=== PATIENT | male | born 1970 | race Caucasian/White ===

== ENCOUNTER 2016-12-02 18:14 | Inpatient (IN) | payer MEDICARE, OTHER ==
--- NOTE | ~2016-12-02 | CN ---
Consultation Report [facility] [address] [place]. [address] NAME: VALERIA TOVAR : 70 STATUS : ADM IN PAT#: [id number] AGE: 46 ADM/REG DATE : 12/02/16 MR#: [id number] REPORT SERV DATE: 12/03/16 DICTATED BY: JESSEE ARCHULETA DATE: 12/03/16 REPORT STATUS : Draft TRANSCRIBED BY: MODL DATE: 12/03/16 CARDIAC ELECTROPHYSIOLOGY CONSULTATION DATE OF CONSULTATION: 12/03/2016 SIXTH GRADE TEACHER: Bravo Santos M.D. BOTTOMING ROOM SUPERVISOR: Dr. Gregory Markham and Dr. Marquez Hernandez. INDICATIONS: Recurrent VT. HISTORY OF PRESENT ILLNESS: Valeria Tovar is a 46-year-old man with a complex past medical history with nonischemic cardiomyopathy, history of acute myocarditis. His ejection fraction has subsequently improved. He has had recurrent episodes of ventricular tachycardia in 2010 and 2014, and reports a previous VT storm, having received 50 shocks in the past. He has an existing dual-chamber defibrillator. He has had previous ablation for atrial fibrillation performed at [facility]. His ICD is followed by Dr. Marquez Hernandez at [facility]. The patient presented to the emergency room yesterday, he had been somewhat hot, but not excessively dehydrated by his report. After cleaning up, he received numerous ICD discharges, who presents to the emergency room. I have reviewed the interrogation and the patient has received 57 ICD treatments since 10/26/2016 with a total of 41 shocks. Of interest, he was apparently contacted by [facility] last week and advised increase his sotalol from 40 twice daily to 80 twice daily anticipation is related to VT event that occurred in October. The patient was seen by EMS initially which gave him lidocaine and which terminated the ventricular tachycardia. He reports some soreness in his chest, but no juan angina. He had marked lightheadedness with these spells. He did not drive a car. No active complaints of shortness of breath at the present time. On interrogation the patient's defibrillator, all treatments are appropriate. PAST MEDICAL HISTORY: Nonischemic cardiomyopathy, history of myocarditis, chronic systolic heart failure, VT, AFib, chronic anticoagulation, hypertension, history of DVT, history of tobacco use, chronic back pain, and a dual-chamber defibrillator. Ejection fraction last measured at 48% by echo, 02/2016. MEDICATIONS: Home medications with [facility] home medicine form and reviewed. Of note, sotalol 80 mg twice daily and Eliquis 5 mg b.i.d. ALLERGIES: NONE KNOWN. OTHERWISE, MEDICINES PER THE PATIENT'S HOME MED SHEET. SOCIAL HISTORY: No present smoking. FAMILY HISTORY: Known for hypertension and coronary artery disease. Consultation Report [address]. [address] NAME: VALERIA TOVAR : 70 STATUS : ADM IN PAT#: [id number] AGE: 46 ADM/REG DATE : 12/02/16 MR#: [id number] REPORT SERV DATE: 12/03/16 DICTATED BY: JESSEE ARCHULETA DATE: 12/03/16 REPORT STATUS : Draft TRANSCRIBED BY: CECI DATE: 12/03/16 REVIEW OF SYSTEMS: As per the HPI. Otherwise, all review of systems negative. PHYSICAL EXAMINATION: VITAL SIGNS: Blood pressure 106/62, pulse is 60, respiratory rate is 18. GENERAL: Appears stated age, no distress. EYES: Sclerae anicteric, no arcus senilis. MOUTH: Oral mucosa moist, lips acyanotic. NECK: Jugular venous pressure normal, no carotid bruits. LUNGS: Clear to auscultation bilaterally, normal inspiratory effort. CARDIAC: Regular rate and rhythm, no murmurs, gallops or rubs. ABDOMEN: Soft, nondistended, nontender. EXTREMITIES: No edema. SKIN: Warm and dry. NEURO/PSYCH: Alert and oriented, nonfocal, mood appropriate. DATA: Sodium 138, potassium 4.8, creatinine 1.19. Troponin 0.12. Hemoglobin 13.5. ECG is atrial sensed ventricular paced rhythm. IMPRESSIONS: 1. Recurrent ventricular tachycardia storm. 2. Nonischemic cardiomyopathy. 3. Normal function existing ICD. Better life reported at less than one month. I have reinterrogated given multiple shocks. 4. Atrial fibrillation with previous ablation. RECOMMENDATIONS: Increase sotalol to 160 twice daily, add mexiletine 150 t.i.d. then wean lidocaine, increase lower rate limit of ICD to 80 if medicine changes fell consider amiodarone and consider prompt followup with [facility]. Discussed with the patient. All questions answered. TOVA/CECI Jessee Archuleta M.D. / [id number] CC: Nile De La Garza M.D.
--- NOTE | ~2016-12-02 | HP ---
History And Physical [address] [place]. [address] NAME: VALERIA TOVAR : 70 STATUS : ADM IN [facility]#: [id number] AGE: 46 ADM/REG DATE : 12/02/16 MR#: [id number] REPORT SERV DATE: 12/03/16 DICTATED BY: VISH SANTOS DATE: 12/03/16 REPORT STATUS : Draft TRANSCRIBED BY: MODL DATE: 12/03/16 DATE OF ADMISSION: 12/02/2016 CHIEF COMPLAINT: Defibrillator discharge multiple times. HISTORY OF PRESENT ILLNESS: The patient is a 46-year-old male with a known history of left ventricular outflow tachycardia with recurrent ventricular tachycardia. The patient has a history of previous ablations in 2010 and in 2014 with subsequent implantable defibrillator placement. The patient has a dual-chamber Medtronic brand ICD. The patient also has a history of paroxysmal atrial fibrillation and flutter and is status post ablation 03/01/2016. The patient reports that 24 hours prior to admission, the patient was performing routine activities when he suddenly felt dizzy then felt a defibrillator discharge. He had complete resolution of his dizziness and felt fine, he worked vigorously during the day in the yard without symptoms. On the day of admission, the patient noticed a recurrent episode of dizziness, he had then had recurrent defibrillator discharge followed subsequently by multiple recurrent discharges. Interrogation of the device demonstrates recurrent ventricular tachycardia with 40 defibrillator discharges within 24 hour. The patient was seen in the emergency department, begun on intravenous lidocaine drip and has had no recurrence since that time. The patient denies any recent chest pain. Denies dyspnea on exertion. Denies lower extremity edema. He states that he has been compliant with medications. He has had no recent illness. Denies fevers, chills, bowel or bladder abnormalities. PAST MEDICAL HISTORY: 1. Left ventricular tachycardia, status post ablations in 2010 and 2014. a. Previous defibrillator implantation with dual-chamber Medtronic brand device 12/23/2014. 2. Paroxysmal atrial fibrillation/flutter, status post ablation on 03/01/2016. 3. Chronic anticoagulation due to paroxysmal atrial fibrillation on Eliquis. 4. Hyperlipidemia. 5. Hypertension. 6. Gastroesophageal reflux disease. 7. Chronic back pain. 8. History of nonischemic cardiomyopathy with a most recent echocardiogram, end of last year demonstrating ejection fraction of 48%. ALLERGIES: NO KNOWN DRUG ALLERGIES. HOME MEDICATIONS: Xanax one tablet p.o. t.i.d., apixaban 5 mg b.i.d., Abilify 15 mg at bedtime, Nexium 40 mg daily, Flonase p.r.n., Lasix 40 mg p.r.n. edema, metoprolol succinate 50 mg daily, oxycodone 15 mg t.i.d., sertraline 100 mg daily, sotalol 80 mg q.12, spironolactone 25 mg daily, testosterone cypionate 200 mg IM q.10 days, and Zanaflex 4 mg p.r.n. muscle spasms. History And Physical [address] [address] NAME: VALERIA TOVAR : 70 STATUS : ADM IN [facility]#: [id number] AGE: 46 ADM/REG DATE : 12/02/16 MR#: [id number] REPORT SERV DATE: 12/03/16 DICTATED BY: VISH SANTOS DATE: 12/03/16 REPORT STATUS : Draft TRANSCRIBED BY: CECI DATE: 12/03/16 FAMILY HISTORY: Noncontributory. SOCIAL HISTORY: The patient denies illicit drug use. REVIEW OF SYSTEMS: Negative for all organ systems except per the history of present illness. PHYSICAL EXAMINATION: VITAL SIGNS: Blood pressure ranging 106/62 to 142/94, pulse 62, respirations 12 and unlabored, saturating 99% on room air, weight 89 kg. GENERAL: Middle-aged male, somewhat anxious appearing, but in no acute distress. HEENT: Normal. NECK: Supple, no JVD or bruit, normal carotid upstroke bilaterally, no thyromegaly. LUNGS: Clear to auscultation and percussion. No wheezes, rales or rhonchi. No use of accessory muscles. CARDIOLOGY: Regular rhythm, normal S1, S2, no thrill, no murmur, rubs or gallops, normal PMI. ABDOMEN: Bowel sounds positive, soft, nontender, and nondistended. No masses or aortic bruits. No hepatosplenomegaly or hepatojugular reflux. EXTREMITIES: No edema. Normal pulses. No clubbing or cyanosis. SKIN: Warm and dry, no significant rash. NEUROLOGIC: Alert and oriented x 3. Appropriate mood. LABORATORY DATA: EKG: Sinus rhythm. First-degree AV block. Ventricularly paced rhythm. WBC 10.5, hemoglobin 13.5, hematocrit 38.5, platelets 343,000. Sodium 138, potassium 4.8, chloride 109, CO2 of 27, BUN 20, creatinine 1.19, glucose 91, troponin 0.12, magnesium 1.9. Chest x-ray: Unremarkable. IMPRESSION: Recurrent ventricular tachycardia, the patient with history of same and previous multiple ablation procedures. A consideration initiation of mexiletine versus transition from sotalol to amiodarone, somewhat hesitant to do so given the patient's young age, potential long-term side effects are same. We will formally consult electrophysiology, discuss the role of potential recurrent ablation, although unlikely given two previous ablations. AP/CECI Bravo Santos M.D. / [id number] CC: History And Physical [address] [address] NAME: VALERIA TOVAR : 70 STATUS : ADM IN [facility]#: [id number] AGE: 46 ADM/REG DATE : 12/02/16 MR#: [id number] REPORT SERV DATE: 12/03/16 DICTATED BY: VISH SANTOS DATE: 12/03/16 REPORT STATUS : Draft TRANSCRIBED BY: CECI DATE: 12/03/16 Nile De La Garza M.D.
[~2016-12-02 18:14] MED LIST: ABILIFY15 PO; ATV.5 PO; BETAPACE AF80 MG PO; CONSTULOSE PO; DEPO-TESTOS200 MG/ML IM; ELIQUIS 5 MG TAB5 MG PO; FISH OIL300 MG PO; FISH-EPA1000 MG PO; FLONASE NAS; KLOR-CON M2020 MEQ PO; L40 PO; LOP25 PO; LOP50 PO; LORT7 PO; MEXILETINE150 MG OR; NEXIUM40 PO; NORCO1 TA2 PO; NORCO1 TAB PO; NORV5 PO; OXYCOD PO; PRAVAC PO; PRILO PO; PRILOSEC40 MG PO; PRIN10 PO; PRIN20 PO; ROXICODONE15 MG PO; RYTHMOL225 MG PO; SORINE80 MG PO; SPIRO25 PO; TAMBOCOR PO; TAMBOCOR150 MG PO; TESTOST CYP100 MG/ML IM; TESTOST CYP200 MG/ML IM; TOPXL100 PO; TOPXL50 PO; TRICOR145 PO; V180SR PO; VERAPAMIL PO; XANAX1 MG PO; ZANAFLEX 4 MG TA4 MG PO; ZOL100 PO
[2016-12-02 18:16] LABS: BASOPHILS 0.2 %; BASOPHILS ABSOLUTE 0.02 10/3/uL (0.0-0.16); EOSINOPHILS 1.3 %; EOSINOPHILS ABSOLUTE 0.14 10/3/uL (0.0-0.53); ER CBC TAT 0 Hrs 07 Mins; HEMATOCRIT 38.5 % (40.0-51.0); HEMOGLOBIN 13.5 g/dL (13.6-17.8); IMMATURE GRANULOCYTES 0.2 %; IMMATURE GRANULOCYTES ABSOLUTE 0.02 10/3/uL (0.0-0.11); LYMPHOCYTES 21.7 %; LYMPHOCYTES ABSOLUTE 2.27 10/3/uL (0.67-4.30); MEAN CORPUS HGB CONC 35.1 g/dL (32.0-36.0); MEAN CORPUSCULAR HEMOGLOB 27.4 pg (26.0-34.0); MEAN PLATELET VOLUME 9.9 fL (9.2-13.0); MONOCYTES 8.3 %; MONOCYTES ABSOLUTE 0.87 10/3/uL (0.21-1.20); NEUTROPHILS 68.3 %; NEUTROPHILS ABSOLUTE 7.16 10/3/uL (2.02-8.40); RBC DISTRIBUTION WIDTH 14.5 % (12.0-16.0); RED CELL COUNT 4.93 10/6/uL (4.7-6.1); WHITE BLOOD CELLS 10.5 10/3/uL (4.5-10.5)
[2016-12-02 18:18] LABS: MANUAL DIFF NO %; MEAN CORPUSCULAR VOLUME 78.1 fL (80-100); PLATELET COUNT 343 10/3/uL (150-400)
[2016-12-02 18:24] LABS: INTERNATIONAL NORMAL RATI 1.2 UNITS (-); PARTIAL THROMBO TIME 32.7 SEC (22.5-37.2); PROTIME (NOT ORD) 15.1 SEC (12.0-14.5)
[2016-12-02 18:32] LABS: CALCIUM, SERUM 8.5 MG/DL (8.5-10.4); CHLORIDE, SERUM 109 MMOL/L (96-112); CO2 (CARBON DIOXIDE) 27 MMOL/L (24-34); CREATININE 1.19 MG/DL (0.70-1.30); GFR AFRICAN AMERICAN 84 ML/MIN (>=60); GFR NON AFRICAN AMERICAN 73 ML/MIN (>=60); GLUCOSE, SERUM 91 MG/DL (60-99); SODIUM, SERUM 138 MMOL/L (135-148)
[2016-12-02 18:36] LABS: BUN (BLOOD UREA NITROGEN) 20 MG/DL (6-23); POTASSIUM, SERUM 4.8 MMOL/L (3.5-5.3)
[2016-12-02 18:37] LABS: CHEST PAIN PROFILE TAT 0 Hrs 28 Mins; TROPONIN I 0.12 NG/ML (<0.05)
[2016-12-04 04:10] LABS: BUN (BLOOD UREA NITROGEN) 17 MG/DL (6-23); CALCIUM, SERUM 8.7 MG/DL (8.5-10.4); CHLORIDE, SERUM 107 MMOL/L (96-112); CO2 (CARBON DIOXIDE) 32 MMOL/L (24-34); CREATININE 0.94 MG/DL (0.70-1.30); GFR AFRICAN AMERICAN 112 ML/MIN (>=60); GFR NON AFRICAN AMERICAN 97 ML/MIN (>=60); GLUCOSE, SERUM 95 MG/DL (60-99); SODIUM, SERUM 141 MMOL/L (135-148)
[2016-12-04] MEDS ORDERED: MEXITIL 150 MG150 MG PO (08:34)
[2016-12-04] MEDS ORDERED: BETAPACE160 MG PO (08:38)
[2017-01-21] MEDS ORDERED: NEXIUM20 M1 PO (11:45)
[2017-01-21] MEDS ORDERED: ZESTRIL30 MG PO (11:45)
[2017-01-21] MEDS ORDERED: TOPXL100 PO (11:45)
[2017-01-21] MEDS ORDERED: PEP20 PO (11:45)
[2017-01-21] MEDS ORDERED: BETAPACE80 PO (11:46)
[2017-01-21] MEDS ORDERED: L20 PO (11:59)
[2017-01-21] MEDS ORDERED: KLOR-CON M1010 MEQ PO (11:59)
[2017-01-22] MEDS ORDERED: FLONASE (10:00)
[2017-01-22] MEDS ORDERED: PRILOSEC40 MG PO (10:00)
== END 2016-12-04 13:43 | disposition home or self-care (01) | DRG 309 ==
LOC: ER 18:14 → 7NO 20:23
PROVIDERS: Emergency Medicine; Internal Medicine Cardiovascular Disease
PROC: 4B02XTZ Measurement of Cardiac Defibrillator, External Approach (ICD-10-PCS; principal; 2016-12-03)
DX: I47.2 Ventricular tachycardia (principal); I42.9 Cardiomyopathy, unspecified; I24.8 Other forms of acute ischemic heart disease; I50.22 Chronic systolic (congestive) heart failure; I48.0 Paroxysmal atrial fibrillation; M54.6 Pain in thoracic spine; Z95.810 Presence of automatic (implantable) cardiac defibrillator; Z86.718 Personal history of other venous thrombosis and embolism; Z87.891 Personal history of nicotine dependence; Z79.02 Long term (current) use of antithrombotics/antiplatelets
CPT/HCPCS: 71010; 78452; 80048; 83735; 84484; 85025; 85610; 85730; 93005; 93017; 96365; 96366; 96375; 99291; A9270-GY; A9502; J0153; J1170

== ENCOUNTER 2016-12-19 06:46 | Inpatient (IN) | payer MEDICARE, OTHER ==
--- NOTE | ~2016-12-19 | HP ---
History And Physical [address] [place]. [address] NAME: VALERIA TOVAR : 70 STATUS : ADM IN [facility]#: [id number] AGE: 46 ADM/REG DATE : 12/19/16 MR#: [id number] REPORT SERV DATE: 12/19/16 DICTATED BY: ALEXIS MONIQUE DATE: 12/19/16 REPORT STATUS : Draft TRANSCRIBED BY: MODL DATE: 12/19/16 DATE OF ADMISSION: 12/19/2016 [facility] PHYSICIAN: Bravo Santos M.D. MAILROOM ASSISTANT: Gregory Markham M.D. CHIEF COMPLAINT: Dizziness and defibrillator firing. HISTORY OF PRESENT ILLNESS: Mr. Tovar is a 46-year-old man with a history of nonischemic cardiomyopathy and recurrent ventricular tachycardia as well as atrial fibrillation. He was hospitalized just a few weeks ago for VT storm. His defibrillator had fired approximately 40 times. He had an increased dose of sotalol and addition of mexiletine to his medical regimen. He was discharged home. He was doing fairly well, saw Dr. Markham in the office last week with a discussion regarding upgrade of his defibrillator to biventricular device with mild decreased LV function. He reportedly had some dizziness and his defibrillator began firing yesterday evening. He reported 10 to 12 shocks. He came to the emergency room. He has had no firing since he has been in the emergency room. Interrogation of the defibrillator does show recurrent episodes of ventricular tachycardia with numerous pace- terminated episodes and 12 shocks. He reports no exertional symptoms, chest pain, tightness prior to these episodes, although does have some mild chest tightness now as well as back pain that he relates to his defibrillator firing. He had no exertional shortness of breath or lower extremity edema. He has had some mild palpitations. No fevers or chills. No nausea or vomiting. Currently, he is requesting his anxiety medicine and pain medicine. REVIEW OF SYSTEMS: As per the history of present illness. All other systems are negative. PAST MEDICAL HISTORY: 1. Ventricular tachycardia, status post LVOT tachycardia with ablation in 2010 and 2014. 2. History of ICD placement. 3. Paroxysmal atrial fibrillation with ablation in February of 2016. 4. Chronic anticoagulation with Eliquis. 5. Hypertension. 6. Hypercholesterolemia. 7. Reflux. 8. Nonischemic cardiomyopathy with a history of myocarditis with recent LVEF of 40%, which is a small decline. FAMILY HISTORY: Noncontributory. SOCIAL HISTORY: The patient is . Reports no tobacco. ALLERGIES: NO KNOWN DRUG ALLERGIES. HOME MEDICATIONS: Xanax one daily, Eliquis 5 p.o. b.i.d., Abilify 15 q.a.m., Nexium 40 History And Physical [address] [address] NAME: VALERIA TOVAR : 70 STATUS : ADM IN PAT#: [id number] AGE: 46 ADM/REG DATE : 12/19/16 MR#: [id number] REPORT SERV DATE: 12/19/16 DICTATED BY: ALEXIS MONIQUE DATE: 12/19/16 REPORT STATUS : Draft TRANSCRIBED BY: CECI DATE: 12/19/16 daily, Flonase, Lasix 40 p.r.n., Zestril 30 q.a.m., Toprol-XL 100 daily, mexiletine 150 p.o. t.i.d., oxycodone 10 q.6 p.r.n., Zoloft, Betapace 160 p.o. b.i.d., Aldactone 25 daily, and testosterone. PHYSICAL EXAMINATION: VITAL SIGNS: Heart rate 72, blood pressure 129/92. GENERAL: The patient is a pleasant white male, in no apparent distress. HEENT: Conjunctivae are anicteric, no xanthelasma, lips without cyanosis. NECK: Supple, normal JVP, carotids +2 without bruit. LUNGS: Clear to auscultation bilaterally, no wheezes, rales or rhonchi. CARDIOVASCULAR: Irregularly irregular. Normal S1, S2. Distant heart sounds. ABDOMEN: Soft, nontender, nondistended, with normal bowel sounds. No hepatomegaly. EXTREMITIES: No clubbing, cyanosis or edema. NEURO/PSYCH: Alert and oriented to person, place and time. No obvious neurologic deficits. Mood and affect normal. DATA: Labs significant for creatinine of 1.25, hematocrit of 40.6, troponin 0.02. IMPRESSION: 1. Recurrent ventricular tachycardia with VT storm. 2. Nonischemic cardiomyopathy, history of myocarditis. 3. History of left ventricular outflow tract ventricular tachycardia, status post ablation x2. 4. Paroxysmal atrial fibrillation. 5. History of ICD placement. 6. Anxiety and chronic pain. 7. Hypertension, hypercholesterolemia, and reflux. RECOMMENDATIONS: Mr. Tovar has had recurrent ventricular tachycardia. He has a history of an LVOT tachycardia, status post ablation. He has now recurrent episodes on both mexiletine and sotalol. I wonder if this may be an indication for consideration to remap him and ablation. I am going to hold his Eliquis short-term and try to get in touch with Dr. Markham, his primary air breaker operator, to determine the course of treatment. At this time, he is hemodynamically stable. We will continue his other medicines, otherwise. WO/MODL Alexis Monique M.D., Ph.D, F.A.C.C. / [id number] CC: MD Brendan Harris M.D.
--- NOTE | ~2016-12-19 | DS ---
Discharge Summary [facility] [address] [place]. [address] NAME: VALERIA TOVAR : 70 STATUS : DIS IN PAT#: [id number] AGE: 46 ADM/REG DATE : 12/19/16 MR#: [id number] REPORT SERV DATE: 01/05/17 DICTATED BY: SKIP MARKHAM DATE: 01/04/17 REPORT STATUS : Draft TRANSCRIBED BY: CECI DATE: 01/04/17 Data Collection from hospitalization DISCHARGE DIAGNOSES: 1. Ventricular tachycardia. 2. Paroxysmal atrial fibrillation. 3. Nonischemic cardiomyopathy. 4. Hypertension. 5. Chronic anticoagulation with Eliquis. 6. Hypercholesterolemia. 7. Reflux. 8. History of implantable cardioverter defibrillator placement. CONSULTATIONS: None. PROCEDURES PERFORMED: 1. Cardiac catheterization on 12/20/2016. 2. Ablation on 12/25/2016. MEDICATIONS: Xanax 1 mg three times a day, Eliquis 5 mg twice a day, Abilify 15 mg every morning, Nexium 40 mg every morning, Flonase two sprays nasally every morning and two sprays nasally daily as needed, Lasix 40 mg daily as needed, Zestril 30 mg every morning, Toprol-XL 100 mg every morning, Mexitil 150 mg three times a day, Roxicodone 10 mg every six hours as needed, Zoloft 100 mg every morning, and Aldactone 25 mg every morning. He was instructed not to continue sotalol or testosterone. CONDITION AT DISCHARGE: Stable. DISPOSITION: The patient was discharged home on a low-sodium, low-cholesterol, cardiac diet with activities as instructed. He would follow up with me on 01/21/2017. He would follow up with Dr. Bravo Santos on 02/28/2017. He would follow up for ICD check at [facility] on 02/13/2017. He would follow up with his primary care provider as instructed. HOSPITAL COURSE: This is a 46-year-old man who has a history of nonischemic cardiomyopathy and recurrent ventricular tachycardia as well as atrial fibrillation. He had been hospitalized a few weeks prior to this admission for a ventricular tachycardia storm. His defibrillator had fired approximately 40 times. He had an increased dose of sotalol and the addition of mexiletine to his medical regimen. He had been discharged home. He was doing fairly well. I saw him in the office the week prior to this admission. He discussed upgrade of his defibrillator to a biventricular device with mild decreased LV function. He reportedly had some dizziness and his defibrillator began firing on the evening prior to this admission. He reported 10 to 12 shocks. He came to the emergency room. He has had no firing since he has been in the emergency room. Interrogation of the defibrillator did show recurrent episodes of ventricular tachycardia with numerous pace terminated episodes and 12 shocks. He reported no exertional symptoms, chest pain, or tightness prior to these episodes, although he did have some mild chest tightness as well as back pain that he related to his defibrillator firing. He had no exertional shortness of breath or lower extremity edema. He did have some mild palpitations. He was currently requesting his Discharge Summary [address] [place]. [address] NAME: VALERIA TOVAR : 70 STATUS : DIS IN PAT#: [id number] AGE: 46 ADM/REG DATE : 12/19/16 MR#: [id number] REPORT SERV DATE: 01/05/17 DICTATED BY: SKIP MARKHAM DATE: 01/04/17 REPORT STATUS : Draft TRANSCRIBED BY: CECI DATE: 01/04/17 anxiety medication and pain medication. He was admitted to the hospital at this time for further evaluation and treatment. Upon admission, his creatinine was 1.25. Troponin was 0.02. The patient has had recurrent episodes on both mexiletine and sotalol. We wondered if this may be an indication for consideration to remap him and ablation. We would hold his Eliquis short-term. At this time, he was hemodynamically stable. The following day, his lungs were clear. Sotalol and mexiletine were continued. His Medtronic device was checked. It was felt that the patient would need to undergo a cardiac catheterization. He was taken to the cardiac cathead worker by Dr. Rivera Raymundo where he underwent the above-mentioned procedure. He tolerated this well, and there were no complications. It was felt that he would need to undergo an ablation procedure. The following day, he did complain of anxiety related to his device firing. He was requesting that his Abilify be increased as well as his pain medications. He was asking to walk in the halls. He had no chest pain or shortness of breath. IV lidocaine was continued. Eliquis was restarted. [place] was discontinued. He was placed on oxycodone. On 12/22/2016, he had no dyspnea or chest pain. He has had no ICD discharges. Telemetry revealed ventricular paced rhythm. Eliquis was stopped. Sotalol was discontinued. Lidocaine drip was started. The next day, he did have some lidocaine toxicity symptoms. Lidocaine drip was stopped. It would be restarted later that day. Plans were being made to proceed with ablation. On 12/25/2016, he underwent successful ablation of idiopathic ventricular tachycardia. He tolerated this well, and there were no complications. Discharge planning was performed. On 12/26/2016, he had no chest pain, palpitations, or shortness of breath. He was alert and cooperative. Mexiletine was continued as well as metoprolol and Eliquis. Sotalol remained and discontinued. Discharge instructions were given. Due to his improved and stable condition, he was discharged home with the above- stated instructions. Information collected by: Marisabel Christine I submit the above information as my discharge summary. TG/MODL Skip Markham M.D. / [id number] CC: MD Brendan Harris M.D.
[2016-12-19 05:24] LABS: BASOPHILS 0.6 %; BASOPHILS ABSOLUTE 0.05 10/3/uL (0.0-0.16); EOSINOPHILS 2.6 %; EOSINOPHILS ABSOLUTE 0.23 10/3/uL (0.0-0.53); HEMATOCRIT 41.6 % (40.0-51.0); HEMOGLOBIN 14.1 g/dL (13.6-17.8); IMMATURE GRANULOCYTES 0.1 %; IMMATURE GRANULOCYTES ABSOLUTE 0.01 10/3/uL (0.0-0.11); LYMPHOCYTES 26.8 %; LYMPHOCYTES ABSOLUTE 2.39 10/3/uL (0.67-4.30); MEAN CORPUS HGB CONC 33.9 g/dL (32.0-36.0); MEAN CORPUSCULAR HEMOGLOB 27.2 pg (26.0-34.0); MEAN CORPUSCULAR VOLUME 80.2 fL (80-100); MEAN PLATELET VOLUME 9.8 fL (9.2-13.0); MONOCYTES 6.6 %; MONOCYTES ABSOLUTE 0.59 10/3/uL (0.21-1.20); NEUTROPHILS 63.3 %; NEUTROPHILS ABSOLUTE 5.66 10/3/uL (2.02-8.40); PLATELET COUNT 326 10/3/uL (150-400); RBC DISTRIBUTION WIDTH 14.3 % (12.0-16.0); RED CELL COUNT 5.19 10/6/uL (4.7-6.1); WHITE BLOOD CELLS 8.9 10/3/uL (4.5-10.5)
[2016-12-19 05:26] LABS: ER CBC TAT 0 Hrs 07 MinsNP; MANUAL DIFF NO %
[2016-12-19 05:30] LABS: INTERNATIONAL NORMAL RATI 1.1 UNITS (-); PARTIAL THROMBO TIME 32.7 SEC (22.5-37.2); PROTIME (NOT ORD) 13.7 SEC (12.0-14.5)
[2016-12-19 05:41] LABS: BUN (BLOOD UREA NITROGEN) 18 MG/DL (6-23); CALCIUM, SERUM 8.5 MG/DL (8.5-10.4); CHEST PAIN PROFILE TAT 0 Hrs 24 Mins; CHLORIDE, SERUM 107 MMOL/L (96-112); CO2 (CARBON DIOXIDE) 28 MMOL/L (24-34); CREATININE 1.25 MG/DL (0.70-1.30); GFR AFRICAN AMERICAN 80 ML/MIN (>=60); GFR NON AFRICAN AMERICAN 69 ML/MIN (>=60); GLUCOSE, SERUM 113 MG/DL (60-99); SODIUM, SERUM 139 MMOL/L (135-148); TROPONIN I <0.02 NG/ML (<0.05)
[~2016-12-19 06:46] MED LIST changes: +BETAPACE160 MG PO; +MEXITIL 150 MG150 MG PO
[2016-12-19] MEDS ORDERED: ELIQUIS 5 MG TAB5 MG PO (07:18)
[2016-12-19] MEDS ORDERED: TOPXL100 PO (07:18)
[2016-12-19] MEDS ORDERED: FLONASE NAS ×2 (07:19)
[2016-12-19] MEDS ORDERED: BETAPACE160 MG PO (07:20)
[2016-12-19] MEDS ORDERED: MEXITIL 150 MG150 MG PO (07:20)
[2016-12-19] MEDS ORDERED: ABILIFY15 PO (07:20)
[2016-12-19] MEDS ORDERED: L40 PO (07:21)
[2016-12-19] MEDS ORDERED: SPIRO25 PO (07:22)
[2016-12-19] MEDS ORDERED: ZESTRIL30 MG PO (07:22)
[2016-12-19] MEDS ORDERED: NEXIUM40 PO (07:22)
[2016-12-19] MEDS ORDERED: OXYCOD PO (07:22)
[2016-12-19] MEDS ORDERED: XANAX1 MG PO (07:23)
[2016-12-19] MEDS ORDERED: ZOL100 PO (07:23)
[2016-12-19] MEDS ORDERED: TESTOST CYP100 MG/ML IM (07:25)
[2016-12-20 05:58] LABS: BASOPHILS 0.7 %; BASOPHILS ABSOLUTE 0.05 10/3/uL (0.0-0.16); EOSINOPHILS 2.9 %; EOSINOPHILS ABSOLUTE 0.22 10/3/uL (0.0-0.53); HEMATOCRIT 42.8 % (40.0-51.0); HEMOGLOBIN 14.1 g/dL (13.6-17.8); IMMATURE GRANULOCYTES 0.1 %; IMMATURE GRANULOCYTES ABSOLUTE 0.01 10/3/uL (0.0-0.11); LYMPHOCYTES 32.6 %; LYMPHOCYTES ABSOLUTE 2.51 10/3/uL (0.67-4.30); MEAN CORPUS HGB CONC 32.9 g/dL (32.0-36.0); MEAN CORPUSCULAR HEMOGLOB 27.2 pg (26.0-34.0); MEAN CORPUSCULAR VOLUME 82.5 fL (80-100); MEAN PLATELET VOLUME 9.4 fL (9.2-13.0); MONOCYTES 7.4 %; MONOCYTES ABSOLUTE 0.57 10/3/uL (0.21-1.20); NEUTROPHILS 56.3 %; NEUTROPHILS ABSOLUTE 4.33 10/3/uL (2.02-8.40); PLATELET COUNT 296 10/3/uL (150-400); RBC DISTRIBUTION WIDTH 14.5 % (12.0-16.0); RED CELL COUNT 5.19 10/6/uL (4.7-6.1); WHITE BLOOD CELLS 7.7 10/3/uL (4.5-10.5)
[2016-12-20 05:59] LABS: MANUAL DIFF NO %
[2016-12-20 06:01] LABS: INTERNATIONAL NORMAL RATI 1.1 UNITS (-); PROTIME (NOT ORD) 13.7 SEC (12.0-14.5)
[2016-12-20 06:06] LABS: CALCIUM, SERUM 8.8 MG/DL (8.5-10.4); CHLORIDE, SERUM 103 MMOL/L (96-112); CO2 (CARBON DIOXIDE) 29 MMOL/L (24-34); CREATININE 1.14 MG/DL (0.70-1.30); GFR AFRICAN AMERICAN 89 ML/MIN (>=60); GFR NON AFRICAN AMERICAN 77 ML/MIN (>=60); GLUCOSE, SERUM 105 MG/DL (60-99); POTASSIUM, SERUM 4.1 MMOL/L (3.5-5.3); SODIUM, SERUM 138 MMOL/L (135-148); TRIGLYCERIDE 239 MG/DL (< 150)
[2016-12-20 06:17] LABS: ALBUMIN 3.5 G/DL (3.5-5.0); BUN (BLOOD UREA NITROGEN) 14 MG/DL (6-23); CHOL/HDL RATIO(NOT ORDER) 4.3 (0-5); CHOLESTEROL 196 MG/DL (< 200); HDL CHOLESTEROL 46 MG/DL (> 39); LDL CHOLESTEROL 103 MG/DL (< 130); NON-HDL CHOLESTEROL 150 MG/DL (< 160); PHOSPHORUS, SERUM 3.4 MG/DL (2.5-4.5)
[2016-12-21 06:58] LABS: BASOPHILS 0.2 %; BASOPHILS ABSOLUTE 0.03 10/3/uL (0.0-0.16); EOSINOPHILS 1.8 %; EOSINOPHILS ABSOLUTE 0.22 10/3/uL (0.0-0.53); HEMATOCRIT 44.4 % (40.0-51.0); HEMOGLOBIN 14.8 g/dL (13.6-17.8); IMMATURE GRANULOCYTES 0.2 %; IMMATURE GRANULOCYTES ABSOLUTE 0.03 10/3/uL (0.0-0.11); LYMPHOCYTES 19.7 %; LYMPHOCYTES ABSOLUTE 2.38 10/3/uL (0.67-4.30); MANUAL DIFF NO %; MEAN CORPUS HGB CONC 33.3 g/dL (32.0-36.0); MEAN CORPUSCULAR HEMOGLOB 27.3 pg (26.0-34.0); MEAN CORPUSCULAR VOLUME 81.9 fL (80-100); MEAN PLATELET VOLUME 9.6 fL (9.2-13.0); MONOCYTES 6.9 %; MONOCYTES ABSOLUTE 0.83 10/3/uL (0.21-1.20); NEUTROPHILS 71.2 %; PLATELET COUNT 318 10/3/uL (150-400); RBC DISTRIBUTION WIDTH 14.3 % (12.0-16.0); RED CELL COUNT 5.42 10/6/uL (4.7-6.1); WHITE BLOOD CELLS 12.1 10/3/uL (4.5-10.5)
[2016-12-21 07:07] LABS: BUN (BLOOD UREA NITROGEN) 13 MG/DL (6-23); CALCIUM, SERUM 8.9 MG/DL (8.5-10.4); CHLORIDE, SERUM 102 MMOL/L (96-112); CO2 (CARBON DIOXIDE) 31 MMOL/L (24-34); CREATININE 1.17 MG/DL (0.70-1.30); GFR AFRICAN AMERICAN 86 ML/MIN (>=60); GFR NON AFRICAN AMERICAN 74 ML/MIN (>=60); GLUCOSE, SERUM 109 MG/DL (60-99); POTASSIUM, SERUM 4.2 MMOL/L (3.5-5.3); SODIUM, SERUM 137 MMOL/L (135-148)
[2016-12-22 05:28] LABS: BASOPHILS 0.2 %; BASOPHILS ABSOLUTE 0.02 10/3/uL (0.0-0.16); EOSINOPHILS 1.3 %; EOSINOPHILS ABSOLUTE 0.14 10/3/uL (0.0-0.53); HEMATOCRIT 41.2 % (40.0-51.0); HEMOGLOBIN 13.7 g/dL (13.6-17.8); IMMATURE GRANULOCYTES 0.3 %; IMMATURE GRANULOCYTES ABSOLUTE 0.03 10/3/uL (0.0-0.11); LYMPHOCYTES ABSOLUTE 2.59 10/3/uL (0.67-4.30); MEAN CORPUS HGB CONC 33.3 g/dL (32.0-36.0); MEAN CORPUSCULAR HEMOGLOB 26.7 pg (26.0-34.0); MEAN CORPUSCULAR VOLUME 80.2 fL (80-100); MEAN PLATELET VOLUME 9.9 fL (9.2-13.0); MONOCYTES 5.8 %; MONOCYTES ABSOLUTE 0.63 10/3/uL (0.21-1.20); NEUTROPHILS 68.4 %; NEUTROPHILS ABSOLUTE 7.39 10/3/uL (2.02-8.40); PLATELET COUNT 327 10/3/uL (150-400); RBC DISTRIBUTION WIDTH 14.4 % (12.0-16.0); RED CELL COUNT 5.14 10/6/uL (4.7-6.1); WHITE BLOOD CELLS 10.8 10/3/uL (4.5-10.5)
[2016-12-22 05:36] LABS: BUN (BLOOD UREA NITROGEN) 11 MG/DL (6-23); CHLORIDE, SERUM 104 MMOL/L (96-112); CO2 (CARBON DIOXIDE) 30 MMOL/L (24-34); CREATININE 1.02 MG/DL (0.70-1.30); GFR AFRICAN AMERICAN 102 ML/MIN (>=60); GFR NON AFRICAN AMERICAN 88 ML/MIN (>=60); POTASSIUM, SERUM 3.5 MMOL/L (3.5-5.3); SODIUM, SERUM 138 MMOL/L (135-148)
[2016-12-22 05:38] LABS: GLUCOSE, SERUM 132 MG/DL (60-99)
[2016-12-22 05:48] LABS: MANUAL DIFF NO %
[2016-12-24 06:01] LABS: CALCIUM, SERUM 8.8 MG/DL (8.5-10.4); CHLORIDE, SERUM 108 MMOL/L (96-112); CO2 (CARBON DIOXIDE) 27 MMOL/L (24-34); CREATININE 1.15 MG/DL (0.70-1.30); GFR AFRICAN AMERICAN 88 ML/MIN (>=60); GFR NON AFRICAN AMERICAN 76 ML/MIN (>=60); GLUCOSE, SERUM 106 MG/DL (60-99); POTASSIUM, SERUM 3.8 MMOL/L (3.5-5.3); SODIUM, SERUM 140 MMOL/L (135-148)
[2016-12-24 06:03] LABS: BUN (BLOOD UREA NITROGEN) 15 MG/DL (6-23)
[2016-12-25 06:00] LABS: BASOPHILS 0.2 %; BASOPHILS ABSOLUTE 0.02 10/3/uL (0.0-0.16); EOSINOPHILS 2.2 %; EOSINOPHILS ABSOLUTE 0.19 10/3/uL (0.0-0.53); HEMATOCRIT 39.8 % (40.0-51.0); HEMOGLOBIN 13.4 g/dL (13.6-17.8); IMMATURE GRANULOCYTES 0.2 %; IMMATURE GRANULOCYTES ABSOLUTE 0.02 10/3/uL (0.0-0.11); LYMPHOCYTES 23.7 %; LYMPHOCYTES ABSOLUTE 2.01 10/3/uL (0.67-4.30); MANUAL DIFF NO %; MEAN CORPUS HGB CONC 33.7 g/dL (32.0-36.0); MEAN CORPUSCULAR HEMOGLOB 27.6 pg (26.0-34.0); MEAN CORPUSCULAR VOLUME 81.9 fL (80-100); MEAN PLATELET VOLUME 9.7 fL (9.2-13.0); MONOCYTES 8.1 %; MONOCYTES ABSOLUTE 0.69 10/3/uL (0.21-1.20); NEUTROPHILS 65.6 %; NEUTROPHILS ABSOLUTE 5.54 10/3/uL (2.02-8.40); PLATELET COUNT 226 10/3/uL (150-400); RBC DISTRIBUTION WIDTH 14.7 % (12.0-16.0); RED CELL COUNT 4.86 10/6/uL (4.7-6.1); WHITE BLOOD CELLS 8.5 10/3/uL (4.5-10.5)
[2016-12-25 06:06] LABS: INTERNATIONAL NORMAL RATI 1.1 UNITS (-); PROTIME (NOT ORD) 13.9 SEC (12.0-14.5)
[2016-12-25 06:16] LABS: BUN (BLOOD UREA NITROGEN) 12 MG/DL (6-23); CALCIUM, SERUM 8.6 MG/DL (8.5-10.4); CHLORIDE, SERUM 108 MMOL/L (96-112); CO2 (CARBON DIOXIDE) 24 MMOL/L (24-34); CREATININE 0.86 MG/DL (0.70-1.30); GFR AFRICAN AMERICAN 121 ML/MIN (>=60); GFR NON AFRICAN AMERICAN 104 ML/MIN (>=60); GLUCOSE, SERUM 103 MG/DL (60-99); POTASSIUM, SERUM 3.5 MMOL/L (3.5-5.3); SGOT(AST) 15 U/L (5-40); SGPT(ALT) 18 U/L (5-65); SODIUM, SERUM 139 MMOL/L (135-148); TOTAL PROTEIN 6.5 G/DL (6.0-8.5)
[2016-12-25 06:17] LABS: ALKALINE PHOSPHATASE 50 U/L (45-117); DIRECT BILIRUBIN < 0.1 MG/DL (0.0-0.4); INDIRECT BILIRUBIN(NOT ORDER) 0.2 MG/DL (0.1-0.9); TOTAL BILIRUBIN 0.3 MG/DL (0-1.2)
[2017-01-21] MEDS ORDERED: TOPXL100 PO (11:45)
[2017-01-21] MEDS ORDERED: NEXIUM20 M1 PO (11:45)
[2017-01-21] MEDS ORDERED: PEP20 PO (11:45)
[2017-01-21] MEDS ORDERED: ZESTRIL30 MG PO (11:45)
[2017-01-21] MEDS ORDERED: BETAPACE80 PO (11:46)
[2017-01-21] MEDS ORDERED: KLOR-CON M1010 MEQ PO (11:59)
[2017-01-21] MEDS ORDERED: L20 PO (11:59)
[2017-01-22] MEDS ORDERED: PRILOSEC40 MG PO (10:00)
[2017-01-22] MEDS ORDERED: FLONASE (10:00)
== END 2016-12-26 13:42 | disposition home or self-care (01) | DRG 274 ==
LOC: ER 06:46 → 7NO 06:50 → IMCU 20:06 → SSU1 12-20 09:33 → 7NO 12-20 18:55
PROVIDERS: Internal Medicine Cardiovascular Disease; Internal Medicine Clinical Cardiac Electrophysiology; Nurse Practitioner; Nurse Practitioner Family
PROC: 4A023N7 Measurement of Cardiac Sampling and Pressure, Left Heart, Percutaneous Approach (ICD-10-PCS; principal; 2016-12-20)
PROC: B2111ZZ Fluoroscopy of Multiple Coronary Arteries using Low Osmolar Contrast (ICD-10-PCS; 2016-12-20)
PROC: 4B02XTZ Measurement of Cardiac Defibrillator, External Approach (ICD-10-PCS; 2016-12-20)
PROC: 02583ZZ Destruction of Conduction Mechanism, Percutaneous Approach (ICD-10-PCS; 2016-12-25)
PROC: 4A023FZ Measurement of Cardiac Rhythm, Percutaneous Approach (ICD-10-PCS; 2016-12-25)
PROC: 4A0234Z Measurement of Cardiac Electrical Activity, Percutaneous Approach (ICD-10-PCS; 2016-12-25)
PROC: 02K83ZZ Map Conduction Mechanism, Percutaneous Approach (ICD-10-PCS; 2016-12-25)
DX: I47.2 Ventricular tachycardia (principal); I42.0 Dilated cardiomyopathy; I11.0 Hypertensive heart disease with heart failure; I50.22 Chronic systolic (congestive) heart failure; I48.0 Paroxysmal atrial fibrillation; F41.9 Anxiety disorder, unspecified; E78.00 Pure hypercholesterolemia, unspecified; K21.9 Gastro-esophageal reflux disease without esophagitis; G89.29 Other chronic pain; E78.5 Hyperlipidemia, unspecified; I44.0 Atrioventricular block, first degree; T41.3X5A Adverse effect of local anesthetics, initial encounter; I44.7 Left bundle-branch block, unspecified; Z87.891 Personal history of nicotine dependence; Z79.01 Long term (current) use of anticoagulants; Z79.02 Long term (current) use of antithrombotics/antiplatelets; Z95.810 Presence of automatic (implantable) cardiac defibrillator
CPT/HCPCS: 71010; 80048; 80061; 80069; 80076; 83735; 83880; 84484; 85025; 85347; 85610; 85730; 93005; 93458; 93623; 93654; 96374; 96375; 96376; 99152; 99285; A9270-GY; C1730; C1732; C1769; C1781; C1887; C1894; C8924; J0282; J1170; J2250; J2270; J2370; J2405; J2550; J2720; J3010; Q9957; Q9967

== ENCOUNTER 2017-01-02 15:16 | Inpatient (IN) | payer MEDICARE, OTHER ==
--- NOTE | ~2017-01-02 | HP ---
History And Physical [id number] [place]. [address] NAME: VALERIA TOVAR : 70 STATUS : ADM IN PAT#: [id number] AGE: 46 ADM/REG DATE : 01/02/17 MR#: [id number] REPORT SERV DATE: 01/03/17 DICTATED BY: KAYA CHU DATE: 01/02/17 REPORT STATUS : Draft TRANSCRIBED BY: MODL DATE: 01/02/17 DATE OF ADMISSION: 01/02/2017 CARDIOLOGY ADMISSION HISTORY AND PHYSICAL IDENTIFYING DATA: The patient is a 46-year-old man with a history of viral myocarditis and refractory ventricular tachycardia. CHIEF COMPLAINT: Slurred speech, generalized fatigue, and decreased urine output of 24 to 72 hours' duration. HISTORY OF PRESENT ILLNESS: Mr. Tovar is a 46-year-old man with an extensive cardiovascular history. The patient apparently had a severe myocarditis and underwent defibrillator placement in the distant past. The patient has also had several ablation procedures both at [facility] and also at [facility]. The patient was recently admitted approximately two weeks ago this month with refractory ventricular tachycardia and multiple ICD discharges. According to the patient, he underwent an ablation procedure. The patient was discharged to home. He was started on mexiletine in the not too distant past. Of note, the patient is taking both oxycodone 10 mg p.o. q.6 h. p.r.n. for chronic back pain as well as Xanax 1 mg p.o. three times a day. The patient reports, however, that he has been on these medications for about a year. About 2 to 3 days ago, the patient began to have slurred speech, dizziness, decreased sensorium, and according to his family decreased urine output with brownish discoloration of the urine. The patient finally presented to [facility] earlier today for evaluation. The patient apparently had an extensive workup at [facility] which included a CT scan of the head, according to the family's description, probably a CT pulmonary embolism protocol as well as a rule out for myocardial infarction. The patient's troponin I was found to be 0.1. His lab workup was otherwise grossly unremarkable. According to the family, the patient was told that he did not have a stroke or a pulmonary embolism. The patient and his family requested transfer to [facility] for further evaluation and management. The family reports that the patient has suffered swelling and plethora of his upper extremities, which they report are his usual symptoms of CHF exacerbation. PAST MEDICAL HISTORY: 1. Refractory ventricular tachycardia status post multiple ablations and ICD placement. 2. History of paroxysmal atrial fibrillation, status post ablation. 3. Hypertension. 4. Dyslipidemia. 5. Gastroesophageal reflux disease. 6. 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 SURGICAL HISTORY: Significant for placement of an AICD and multiple cardiac ablation procedures. Surgical history is otherwise noncontributory. History And Physical [address] [address] NAME: VALERIA TOVAR : 70 STATUS : ADM IN [facility]#: [id number] AGE: 46 ADM/REG DATE : 01/02/17 MR#: [id number] REPORT SERV DATE: 01/03/17 DICTATED BY: KAYA CHU DATE: 01/02/17 REPORT STATUS : Draft TRANSCRIBED BY: CECI DATE: 01/02/17 FAMILY HISTORY: Negative for sudden cardiac or early coronary heart disease. SOCIAL HISTORY: The patient is and has no history of tobacco, alcohol, or drug use. ALLERGIES: THE PATIENT REPORTS NO KNOWN MEDICATION ALLERGIES. HOME MEDICATIONS: 1. Xanax 1 mg p.o. three times daily as needed. 2. Eliquis 5 mg p.o. twice daily. 3. Abilify 15 mg p.o. q.a.m. 4. Flonase nasal spray two sprays to each nostril daily. 5. Mexiletine 150 mg p.o. three times daily. 6. Omeprazole 40 mg p.o. daily. 7. Oxycodone 10 mg p.o. q.6 h. as needed for pain. 8. Zoloft 100 mg p.o. q.a.m. 9. Aldactone 25 mg p.o. daily. 10.Testosterone intramuscular injections q.14 days. REVIEW OF SYSTEMS: A complete 12-system review was performed. This is noncontributory except for the pertinent positives and negatives noted in the history of present illness above. PHYSICAL EXAMINATION: VITAL SIGNS: Temperature is 97.9 degrees Fahrenheit, blood pressure is 105/61 mmHg, oxygen saturation is 96% on room air, heart rate is 78 beats per minute and regular, respirations 16, and oxygen saturation is 96% on room air. GENERAL: Constitutional: The patient is an overweight to borderline obese white man, who is very fatigued. He is sleeping on my initial evaluation, but is easily awakened. The patient does, however, appear relatively altered, with slow and somewhat slurred speech. He is grossly oriented x3. EYES: PERRL, EOMI, clear conjunctiva. HEAD/MNT: NCAT with moist mucous membranes and grossly normal hard and soft palate. NECK: Supple with no obvious thyromegaly or lymphadenopathy CARDIOVASCULAR: There is a regular rhythm with a normal S1 and a physiologically split second heart sound. No significant murmurs, rubs, or gallops are noted. The jugular venous pressure does appear to be mildly elevated at 10 cm. PULMONARY: There is diffuse inspiratory and expiratory wheezing with scant bibasilar rales noted. There is no dullness to percussion noted. ABDOMINAL: Soft, non-tender, non-distended with no hepatosplenomegaly noted. EXTREMITIES: There is trace edema at the ankles, with no significant clubbing or cyanosis noted. MUSCULOSKELETAL: Grossly normal strength and range of motion in all extremities INTEGUMENTARY: Skin appears intact with no bruises, wounds or active lesions noted NEURO/PSYC: Alert and oriented x3, with no dysarthria, facial droop or lateralizing weakness noted. History And Physical [address] [address] NAME: VALERIA TOVAR : 70 STATUS : ADM IN [facility]#: [id number] AGE: 46 ADM/REG DATE : 01/02/17 MR#: [id number] REPORT SERV DATE: 01/03/17 DICTATED BY: KAYA CHU DATE: 01/02/17 REPORT STATUS : Draft TRANSCRIBED BY: MODL DATE: 01/02/17 DIAGNOSTIC DATA: A 12-lead EKG has not yet been performed at this facility. The patient's prosthetic assistant shows what appears to be sinus rhythm with sequential ventricular pacing. LABORATORY DATA: Labs are pending at this time, though the patient's electrolytes and CBC were found to be grossly normal at [facility] with a troponin of 0.1. ASSESSMENT AND PLAN: 1. Possible hypotensive episode with congestive heart failure exacerbation: The patient does appear to be mildly volume overloaded on exam as evidenced by elevated jugular venous pressure, wheezing, and pulmonary rales. The patient will be started on Lasix 20 mg IV q.12 h. We will get strict I's and O's. We will collect daily weights. The patient apparently had blood cultures drawn at [facility]. He is afebrile with no other obvious evidence of sepsis or infection. The patient will continue his home medication regimen, we will consider addition of a beta glendy and NERIS inhibitor once the patient has become euvolemic and his mental status has returned to normal. 2. Altered mental status: I am concerned that this may be in part due to the patient's relatively large doses of Roxicodone and Xanax. These will be held for sedation. I will obtain a nocturnal pulse oximetry study to screen for sleep apnea. 3. Status post AICD: The patient's device is nearing elective replacement interval. We will consider device re-interrogation. 4. Ventricular tachycardia: The patient denies any recent defibrillator discharges. The patient was recently started on mexiletine. He is followed by Dr. Gregory Markham, for his EP care. [facility]/MODL Kaya Chu MD / [id number] CC: Gregory Markham M.D.
--- NOTE | ~2017-01-02 | PUL ---
[facility] [address] [place]. [address] NAME: VALERIA TOVAR : 70 STATUS : ADM IN PAT#: [id number] AGE: 46 ADM/REG DATE : 01/02/17 MR#: [id number] REPORT SERV DATE: 01/03/17 DICTATED BY: CAIN GORDON IV DATE: 01/03/17 REPORT STATUS : Draft TRANSCRIBED BY: MODL DATE: 01/03/17 PULMONARY FUNCTION TEST OVERNIGHT OXIMETRY The study was performed on room air. Six hours and 12 minutes of data available for review. The mean oxygen saturation is 95.3%. The lowest recorded saturation was 84%. The patient spent 50 seconds with oxygen saturations less than 90%. There were periods of oxygen saturation variation of sawtooth pattern that at times is varied by more than 4%. There were some clustered episodes in the train caller hours. IMPRESSION: No significant nocturnal hypoxemia on room air. There is no clear pattern consistent with significant obstructive sleep apnea with a desaturation index at the high end of normal at 5 per hour. Clinical correlation is suggested concerning the need for a formal polysomnography. HERB/CECI Cain Gordon IV, M.D. / [id number] CC: Nile De La Garza M.D.
[~2017-01-02 15:16] MED LIST changes: +ZESTRIL30 MG PO
[2017-01-02] MEDS ORDERED: PRILOSEC40 MG PO (16:17)
[2017-01-02] MEDS ORDERED: TESTOSTERONE IM (16:18)
[2017-01-02] MEDS ORDERED: [UNRECOGNIZED DRUG - OTHER] IM (16:18)
[2017-01-02 19:08] LABS: BASOPHILS 0.3 %; BASOPHILS ABSOLUTE 0.03 10/3/uL (0.0-0.16); EOSINOPHILS ABSOLUTE 0.23 10/3/uL (0.0-0.53); HEMATOCRIT 37.6 % (40.0-51.0); IMMATURE GRANULOCYTES 0.3 %; IMMATURE GRANULOCYTES ABSOLUTE 0.03 10/3/uL (0.0-0.11); LYMPHOCYTES 20.2 %; LYMPHOCYTES ABSOLUTE 2.32 10/3/uL (0.67-4.30); MEAN CORPUSCULAR HEMOGLOB 26.7 pg (26.0-34.0); MEAN CORPUSCULAR VOLUME 83.7 fL (80-100); MEAN PLATELET VOLUME 9.5 fL (9.2-13.0); MONOCYTES 5.8 %; MONOCYTES ABSOLUTE 0.67 10/3/uL (0.21-1.20); NEUTROPHILS 71.4 %; NEUTROPHILS ABSOLUTE 8.18 10/3/uL (2.02-8.40); PLATELET COUNT 263 10/3/uL (150-400); RBC DISTRIBUTION WIDTH 15.1 % (12.0-16.0); RED CELL COUNT 4.49 10/6/uL (4.7-6.1); WHITE BLOOD CELLS 11.5 10/3/uL (4.5-10.5)
[2017-01-02 19:09] LABS: MANUAL DIFF NO %; MEAN CORPUS HGB CONC 31.9 g/dL (32.0-36.0)
[2017-01-02 19:28] LABS: BUN (BLOOD UREA NITROGEN) 13 MG/DL (6-23); CALCIUM, SERUM 8.4 MG/DL (8.5-10.4); CHLORIDE, SERUM 103 MMOL/L (96-112); CREATININE 0.97 MG/DL (0.70-1.30); FREE T4 0.88 NG/DL (0.76-1.46); GFR AFRICAN AMERICAN 108 ML/MIN (>=60); GFR NON AFRICAN AMERICAN 93 ML/MIN (>=60); GLUCOSE, SERUM 105 MG/DL (60-99); POTASSIUM, SERUM 3.6 MMOL/L (3.5-5.3); SODIUM, SERUM 138 MMOL/L (135-148)
[2017-01-02 19:29] LABS: CO2 (CARBON DIOXIDE) 32 MMOL/L (24-34)
[2017-01-03 04:38] LABS: BUN (BLOOD UREA NITROGEN) 14 MG/DL (6-23); CALCIUM, SERUM 8.2 MG/DL (8.5-10.4); CHLORIDE, SERUM 104 MMOL/L (96-112); CO2 (CARBON DIOXIDE) 29 MMOL/L (24-34); GFR AFRICAN AMERICAN 104 ML/MIN (>=60); GFR NON AFRICAN AMERICAN 90 ML/MIN (>=60); GLUCOSE, SERUM 112 MG/DL (60-99); SODIUM, SERUM 139 MMOL/L (135-148)
[2017-01-03 04:41] LABS: POTASSIUM, SERUM 4.7 MMOL/L (3.5-5.3)
[2017-01-04 06:25] LABS: BUN (BLOOD UREA NITROGEN) 14 MG/DL (6-23); CALCIUM, SERUM 8.5 MG/DL (8.5-10.4); CHLORIDE, SERUM 101 MMOL/L (96-112); CO2 (CARBON DIOXIDE) 29 MMOL/L (24-34); CREATININE 0.92 MG/DL (0.70-1.30); GFR AFRICAN AMERICAN 115 ML/MIN (>=60); GFR NON AFRICAN AMERICAN 99 ML/MIN (>=60); GLUCOSE, SERUM 113 MG/DL (60-99); POTASSIUM, SERUM 4.1 MMOL/L (3.5-5.3); SODIUM, SERUM 135 MMOL/L (135-148)
[2017-01-04] MEDS ORDERED: L20 PO (08:25)
[2017-01-04] MEDS ORDERED: KLOR-CON 1010 MEQ PO (08:25)
[2017-01-21] MEDS ORDERED: TOPXL100 PO (11:45)
[2017-01-21] MEDS ORDERED: PEP20 PO (11:45)
[2017-01-21] MEDS ORDERED: NEXIUM20 M1 PO (11:45)
[2017-01-21] MEDS ORDERED: ZESTRIL30 MG PO (11:45)
[2017-01-21] MEDS ORDERED: BETAPACE80 PO (11:46)
[2017-01-21] MEDS ORDERED: KLOR-CON M1010 MEQ PO (11:59)
[2017-01-21] MEDS ORDERED: L20 PO (11:59)
[2017-01-22] MEDS ORDERED: PRILOSEC40 MG PO (10:00)
[2017-01-22] MEDS ORDERED: FLONASE (10:00)
== END 2017-01-04 10:44 | disposition home or self-care (01) | DRG 291 ==
LOC: 6NO 15:16
PROVIDERS: Internal Medicine Cardiovascular Disease; Internal Medicine Clinical Cardiac Electrophysiology
PROC: 4B02XTZ Measurement of Cardiac Defibrillator, External Approach (ICD-10-PCS; principal; 2017-01-03)
DX: I50.23 Acute on chronic systolic (congestive) heart failure (principal); I49.01 Ventricular fibrillation; I47.2 Ventricular tachycardia; R40.4 Transient alteration of awareness; M54.9 Dorsalgia, unspecified; T40.2X5A Adverse effect of other opioids, initial encounter; T42.4X5A Adverse effect of benzodiazepines, initial encounter; Z95.810 Presence of automatic (implantable) cardiac defibrillator; Z79.02 Long term (current) use of antithrombotics/antiplatelets
CPT/HCPCS: 71010; 80048; 83880; 84439; 84443; 85025; 93005; 93288; 94762; A9270-GY; J1940